=== PATIENT | male | born 1975 | race Caucasian/White ===

== ENCOUNTER 2021-01-15 00:15 | Emergency (ER) | payer OTHER, SELFPAY ==
--- NOTE | ~2021-01-15 | XR_ITS ---
EXAMINATION: XR chest 2V DATE: 01/15/2021 01:15 INDICATION: Shortness of breath TECHNIQUE: PA and lateral views of the chest are obtained. COMPARISON: None available FINDINGS: The lungs are free of acute opacities. There is no pleural effusion or pneumothorax. The ca rdiomediastinal silhouette is normal. There is mild thoracic spondylosis. IMPRESSION: 1. No acute cardiopulmonary abnormality. Reviewed, dictated and finalized at location A. [employer]
[2021-01-15 00:22] VITALS: BP 162/93; PULSE 67; RESP 16; TEMP 36.8; O2SAT 100
--- NOTE | 2021-01-15 00:28 | ED.SOB ---
HPI - SOB/Dyspnea General Chief Complaint: Shortness of Breath/Dyspnea Stated Complaint: trouble breathing Time Seen by Provider: 01/15/21 00:28 History of Present Illness HPI Narrative: Shortness of breath for the past few days. Only happens at rest and worst while he is sleeping. He believes that he is having periods of apnea that cause him to jolt awake from sleeping. When he is active he does not have any problems. He has been treating himself with OTC medication for congestion. No fever, chills, cough, CP. Related Data Allergies Allergy/AdvReac Type Severity Reaction Status Date / Time venom-wasp Allergy Rash Verified 01/15/21 00:26 Review of Systems Review of Systems: All systems reviewed & are unremarkable except as noted in HPI and below Constitutional: Constitutional: Denies chills and Denies fever(s) ENT: Denies sore throat Cardiovascular: Cardiovascular: Denies chest pain Respiratory: Respiratory: Reports dyspnea Gastrointestinal: Gastrointestinal: Denies abdominal pain and Denies nausea Neurologic: Denies confusion, Denies dizziness and Denies weakness Allergic/Immunologic: Allergic/Immunologic: Denies lip swelling, Denies throat swelling and Denies tongue swelling PMFSH Social History Social History Gender identity (if verbalized by the patient): Male Exam Const: General: healthy appearing, no acute distress and alert Orientation/consciousness: patient oriented x3 HENMT: Head: normal to inspection General nose exam: Abnormal mucous membranes and turbinates present boggy Neck: Neck: normal visual inspection Resp: Effort & Inspection: normal respiratory effort Auscultation: clear to auscultation bilaterally, no rales, no rhonchi and no wheezes Cardio: Jugular venous distension: no JVD Rate: regular rate Rhythm: regular rhythm Heart sounds: no murmurs Skin: General skin exam: normal color Neuro: General: patient oriented x3, moves all extremities, no focal motor deficits and CN's II-XI intact bilaterally Speech: normal speech Gait exam (Neuro): Normal gait present Extrem: General: normal to inspection and no edema Psych: Appearance: well kempt Affect: normal affect Course Vital Signs Vital signs: Vital Signs Temperature 36.8 C 01/15/21 00:22 Pulse Rate 67 01/15/21 00:22 Respiratory Rate 16 01/15/21 00:22 Blood Pressure 162/93 H 01/15/21 00:22 Pulse Oximetry 100 01/15/21 00:22 Temperature 36.8 C 01/15/21 00:22 Pulse Rate 57 L 01/15/21 03:09 Respiratory Rate 18 01/15/21 03:09 Blood Pressure 118/81 01/15/21 03:09 Pulse Oximetry 98 01/15/21 03:09 MDM - SOB/Dyspnea Differential Diagnosis Differential diagnosis: Likely community acquired pneumonia and other (sleep apnea, COVID-19) Lab Data Attestation: I reviewed the patient's lab results. Result diagrams: 01/15/21 01:17 01/15/21 01:17 Labs: Lab Results 01/15/21 01/15/21 Range/Units 01:17 01:17 WBC 11.2 H (4.5-10.0) K/mm3 RBC 4.70 (4.6-6.20) M/mm3 Hgb 16.0 (14.0-18.0) g/dL Hct 46.9 (42.0-52.0) % MCV 99.8 (80-100) fl MCH 34.0 (26-34) pg MCHC 34.1 (32-36) g/dl RDW 12.4 (11.5-14.5) % Plt Count 300 (150-375) k/mm3 MPV 9.7 (7.4-10.4) fl Immature Gran % (Auto) 0.4 (0-0.5) % Neut % (Auto) 49.6 (45.5-73.1) % Lymph % (Auto) 35.4 (18.3-44.2) % [place] % (Auto) 9.2 H (2.6-8.5) % Eos % (Auto) 4.5 H (0-4.4) % Baso % (Auto) 0.9 (0.2-1.2) % Lymph # (Auto) 3.98 H (0.9-3.2) K/mm3 [place] # (Auto) 1.0 H (0.1-0.6) K/mm3 Eos # (Auto) 0.5 H (0-0.3) K/mm3 Baso # (Auto) 0.1 (0.0-0.1) K/mm3 Abs Immat Gran (auto) 0.05 H (0.00-0.031) K/mm3 Absolute Neuts (auto) 5.6 (1.3-6.7) K/mm3 Absolute Nucleated RBC 0.0 (0.0-0.012) K/mm3 Nucleated RBC % 0.0 (0.0-0.2) % Sodium 138 (137-145) mmol/L Potassium 3.6 (3.4-5.0) mmol/L Chloride
--- NOTE | 2021-01-15 01:11 | ECG_ITS ---
Measurements Intervals [place] Rate: 59 P: 57 HI: 171 QRS: 35 QRSD: 91 T: 24 QT: 394 QTc: 391 Interpretive Statements SINUS BRADYCARDIA CANNOT RULE OUT SEPTAL INFARCT, AGE INDETERMINATE BASELINE ARTIFACT- I, III, AVL, AVF, V1 ABNORMAL ECG Electronically Signed On 01-15-2021 7:14:31 PACKING ROOM INSPECTOR by Reginald Garcia D.O.
[2021-01-15 01:31] LABS: Basophils Absolute Auto 0.1 K/mm3 (0.0-0.1); Basophils Percent Auto 0.9 % (0.2-1.2); Eosinophils Absolute Auto 0.5 K/mm3 (0-0.3); Eosinophils Percent Auto 4.5 % (0-4.4); Hematocrit 46.9 % (42.0-52.0); Immature Granulocyte Absolute 0.05 K/mm3 (0.00-0.031); Immature Granulocyte Percent A 0.4 % (0-0.5); Lymphocytes Absolute Auto 3.98 K/mm3 (0.9-3.2); Lymphocytes Percent Auto 35.4 % (18.3-44.2); Mean Corpuscular HGB Conc 34.1 g/dl (32-36); Mean Corpuscular Volume 99.8 fl (80-100); Mean Platelet Volume 9.7 fl (7.4-10.4); Monocytes Percent Auto 9.2 % (2.6-8.5); Neutrophils Absolute Auto 5.6 K/mm3 (1.3-6.7); Neutrophils Percent Auto 49.6 % (45.5-73.1); Platelet Count Result 300 k/mm3 (150-375); Red Cell Distribution Width 12.4 % (11.5-14.5); White Blood Count 11.2 K/mm3 (4.5-10.0)
[2021-01-15 01:42] LABS: Anion Gap 3 mmol/L (8-16); Blood Urea Nitrogen 11 mg/dL (9-20); Calcium 8.6 mg/dL (8.4-10.2); Carbon Dioxide 28 mmol/L (22-30); Chloride 107 mmol/L (98-107); Estimated CRCL calculation 89 ml/min; Estimated Glomerular Filt Rate > 60; Glucose 106 mg/dL (75-110); Potassium 3.6 mmol/L (3.4-5.0); Sodium 138 mmol/L (137-145)
[2021-01-15 02:34] VITALS: BP 127/93; PULSE 56; RESP 20; O2SAT 100
[2021-01-15 03:09] VITALS: BP 118/81; PULSE 57; RESP 18; O2SAT 98
== END 2021-01-15 03:25 | disposition home or self-care (01) ==
PROVIDERS: Emergency Provider Emergency Medicine; PCP Internal Medicine
DX: R06.00 Dyspnea, unspecified (principal); R00.1 Bradycardia, unspecified; R94.31 Abnormal electrocardiogram [ECG] [EKG]
CPT/HCPCS: 36415; 71046; 80048; 85025; 93005; 99284

== ENCOUNTER 2021-12-21 22:16 | Emergency (ER) | payer OTHER, SELFPAY ==
[2021-12-21 22:18] VITALS: BP 130/90; PULSE 82; RESP 18; TEMP 36.1; O2SAT 98
--- NOTE | 2021-12-21 22:38 | ED.HEATRA ---
HPI - Head Injury General Chief complaint: Head Injury Stated complaint: Head injury Time Seen by Provider: 12/21/21 22:23 History of Present Illness HPI Narrative: Patient is a 38-year-old male who presents ER with head laceration. He was wrestling his son training for a competition tomorrow when he was planned and struck his head on a cabinet. No LOC. No change in vision. No nausea or vomiting. No other concerns. No neck pain or upper extremity numbness or tingling. Tetanus is up-to-date. He has a 2.5 similar laceration is superficial over the top of his head. Patient is not on blood thinners. Related Data Allergies Allergy/AdvReac Type Severity Reaction Status Date / Time venom-wasp Allergy Rash Verified 01/15/21 00:26 Review of Systems Eyes: Eyes: Denies change in vision and Denies photophobia Gastrointestinal: Gastrointestinal: Denies nausea and Denies vomiting Integumentary/Breasts: Comments: Scalp laceration Neurologic: Denies vertigo, Denies syncope, Denies headache(s), Denies focal weakness and Denies numbness PMFSH Past Medical History Medical History (Updated 12/21/21 @ 22:45 by Juan Almanzar MD) Healthy adult male Surgical History Surgical History (Updated 12/21/21 @ 22:39 by Juan Almanzar MD) H/O knee surgery H/O wrist surgery Social History Social History Gender identity (if verbalized by the patient): Male Exam Narrative: GENERAL: Well-appearing, well-nourished, and in no acute distress. HEAD: Normocephalic, 2.5 cm scalp laceration superficial. EYES: PERRL and EOMI. EXTREMITIES: Normal range of motion. No edema. SKIN: Warm, dry, no rash. NEURO: Alert and oriented x3. PSYCH: Normal mood and affect. Course Course Emergency Course: Tolerated repair discharge home. Tetanus already up-to-date. Vital Signs Vital signs: Vital Signs Temperature 97 F L 12/21/21 22:18 Pulse Rate 82 12/21/21 22:18 Respiratory Rate 18 12/21/21 22:18 Blood Pressure 130/90 12/21/21 22:18 Pulse Oximetry 98 12/21/21 22:18 Temperature 97 F L 12/21/21 22:18 Pulse Rate 82 12/21/21 22:18 Respiratory Rate 18 12/21/21 22:18 Blood Pressure 130/90 12/21/21 22:18 Pulse Oximetry 98 12/21/21 22:18 Procedures Laceration Laceration 1: Date: 12/21/21 Time: 22:41 Site: scalp Size (cm): 2.5 Description: linear Depth: simple, single layer Local Anesthetic: none Pre-repair: irrigated ====== Skin Level ====== Skin layer closed with: david Number of sutures: 4 ====== Subcutaneous Layer ====== ====== Muscle Layer ====== ====== Tendon Layer ====== Discharge Plan Discharge Clinical Impression: Laceration Patient Disposition: Home, Self-Care Condition: Stable Instructions: Staple Care (ED) Additional Instructions: Return the ER if you lose consciousness, you cannot keep down food or water, you have chest pain or shortness of breath, you have additional concerns. Follow-up/Referrals: PHYSICIAN NOT ON STAFF,NONSTAFF [Primary Care Provider] - 1 Week
== END 2021-12-21 22:50 | disposition home or self-care (01) ==
PROVIDERS: Emergency Provider Emergency Medicine
DX: S01.01XA Laceration without foreign body of scalp, initial encounter (principal); Y93.72 Activity, wrestling; W22.09XA Striking against other stationary object, initial encounter
CPT/HCPCS: 12001; 99282

== ENCOUNTER 2022-04-11 14:43 | Emergency (ER) | payer OTHER, SELFPAY ==
[2022-04-11 14:46] VITALS: BP 130/85; PULSE 64; RESP 12; TEMP 36.4; O2SAT 100
--- NOTE | 2022-04-11 15:13 | ED.ABDPAIN ---
HPI - Abdominal Pain General Chief Complaint: Abdominal Pain Stated Complaint: REPORTED WORK INJURY Time Seen by Provider: 04/11/22 14:53 Source: patient History of Present Illness HPI narrative: Patient presents with abdominal pain. Patient reports he had 3 days of symptoms he was at work lifting a lot of heavy objects and developed right lower quadrant abdominal pain he sneezed and exacerbated his pain. He reports a history of multiple hernias repaired with mesh and was concern for the same. His pain was achy, constant, no radiation, no clear aggravating or alleviating factors. He has not noted any swelling nausea vomiting diarrhea or urinary symptoms. Related Data Allergies Allergy/AdvReac Type Severity Reaction Status Date / Time venom-wasp Allergy Rash Verified 01/15/21 00:26 Review of Systems Review of Systems: CONSTITUTIONAL: Denies fever, chills, or sweats. EYES: Denies visual changes, redness, or discharge. ENT: Denies rhinorrhea, congestion, sore throat, or otalgia. CARDIOVASCULAR: Denies chest pain, palpitations, or edema. RESPIRATORY: Denies cough or dyspnea. GASTROINTESTINAL: Denies, nausea, vomiting, or diarrhea. GENITOURINARY: Denies dysuria or hematuria. SKIN: Denies rash or itching. MUSCULOSKELETAL: Denies back pain, joint pain, or myalgia. NEUROLOGIC: Denies headache, numbness, dizziness, or weakness. PSYCHIATRIC: Denies anxiety or depression. All systems reviewed & are unremarkable except as noted in HPI and below PMFSH Past Medical History Medical History Healthy adult male Surgical History Surgical History H/O knee surgery H/O wrist surgery Social History Social History Gender identity (if verbalized by the patient): Male Exam Narrative: GENERAL: Well-appearing, well-nourished, and in no acute distress. HEAD: Normocephalic, atraumatic. EYES: PERRLA and EOMI. ENT: Nares clear, no rhinorrhea or epistaxis. Mucous membranes moist. NECK: Supple. No masses. No JVD ABDOMEN: Minimal pain with deep palpation in the right lower quadrant no abdominal wall defect appreciated no hernias soft, nondistended : No swelling in the scrotum no focal testicular or epididymal pain no masses appreciated no inguinal lymphadenopathy EXTREMITIES: Normal range of motion. No edema. SKIN: Warm, dry, no rash. NEURO: No focal deficits. Alert and oriented x3. PSYCH: Normal mood and affect. Course Vital Signs Vital signs: Vital Signs Temperature 36.4 C 04/11/22 14:46 Pulse Rate 64 04/11/22 14:46 Respiratory Rate 12 04/11/22 14:46 Blood Pressure 130/85 04/11/22 14:46 Pulse Oximetry 100 04/11/22 14:46 Oxygen Delivery Room Air 04/11/22 14:46 Temperature 36.4 C 04/11/22 14:46 Pulse Rate 64 04/11/22 14:46 Respiratory Rate 12 04/11/22 14:46 Blood Pressure 130/85 04/11/22 14:46 Pulse Oximetry 100 04/11/22 14:46 Oxygen Delivery Room Air 04/11/22 14:46 MDM - Abdominal Pain MDM Narrative Medical decision making narrative: H&P as above, vss, pt looks clinically well, exam with minimal abdominal pain no hernia appreciated, labs/img considered, symptomatic relief available as needed, on reevaluation pt continues to looks clinically well. Suspect abdominal wall strain, dns incarcerated hernia strangulated hernia appendicitis, perforation, torsion plan to tx/monitor as op w/ pcm f/u findings/plan discussed with pt, pt agree/comfortable with plan, return precautions given Discharge Plan Discharge Clinical Impression: Abdominal pain Qualifiers: Abdominal location: right lower quadrant Qualified Code(s): R10.31 - Right lower quadrant pain Patient Disposition: Home, Self-Care Condition: Improved Instructions: Antibiotic Form, Inguinal Hernia (ED), Abdominal Pain (ED) Additional Instructions: Please return
== END 2022-04-11 15:28 | disposition home or self-care (01) ==
PROVIDERS: Emergency Provider Emergency Medicine; PCP Family Medicine
DX: R10.31 Right lower quadrant pain (principal)
CPT/HCPCS: 99281

== ENCOUNTER 2023-08-31 16:27 | Emergency (ER) | payer OTHER, SELFPAY ==
--- NOTE | ~2023-08-31 | XR_ITS ---
EXAMINATION: XR ankle LT min 3V, XR foot LT min 3V DATE: 08/31/2023 17:34 INDICATION: Distal left fibula and lateral left foot pain TECHNIQUE: 1. Anteroposterior, mortise, additional oblique and lateral view of the left ankle were obtained. 2. Dorsoplantar, two oblique and lateral views of the left foot were obtained. COMPARISON: None. FINDINGS: Alignment of the left foot and ankle is normal. No fracture or osteochondral lesion. Mild osteoarthri tis at the first metatarsophalangeal and a few tarsometatarsal and interphalangeal joints. No ankle j oint effusion. The soft tissues are unremarkable. IMPRESSION: 1. Mild polyarticular osteoarthritis in the left mid and forefoot. No acute osseous abnormality. Reviewed, dictated and finalized at location A. IMPRESSION: 1. Mild polyarticular osteoarthritis in the left mid and forefoot. No acute oss eous abnormality.
[2023-08-31 16:57] VITALS: BP 149/106; PULSE 94; RESP 18; TEMP 37.1; O2SAT 98
--- NOTE | 2023-08-31 17:22 | ED.EXTPRO ---
HPI - Extremity Problem General Chief complaint: Extremity Problem,Nontraumatic Stated complaint: lower extremity injury Time Seen by Provider: 08/31/23 17:14 Source: patient and RN notes reviewed Mode of arrival: ambulatory (With crutches) Limitations: no limitations History of Present Illness HPI Narrative: Patient presents today complaining of left hip ankle pain. Ankle pain started suddenly as he was walking from his car into his home approximately 3 hours prior to arrival. Patient denies injury or trauma. Denies numbness or tingling in the leg or foot. States he noted some swelling to the ankle and wrappedit. He describes the pain as sharp with movement. Currently rates pain 2/10 at rest, which increases to 8/10 with movement. Related Data Allergies Allergy/AdvReac Type Severity Reaction Status Date / Time venom-wasp Allergy Rash Verified 01/15/21 00:26 Review of Systems Review of Systems: CONSTITUTIONAL: Denies body aches, fever, chills, or sweats. EYES: Denies visual changes, redness, or discharge. ENT: Denies rhinorrhea, congestion, sore throat, or otalgia. CARDIOVASCULAR: Denies chest pain, palpitations, or edema. RESPIRATORY: Denies cough or dyspnea. GASTROINTESTINAL: Denies abdominal pain, nausea, vomiting, or diarrhea. GENITOURINARY: Denies dysuria or hematuria. SKIN: Denies rash, itching, or wounds. MUSCULOSKELETAL: Denies back pain, or myalgia.+ left ankle pain NEUROLOGIC: Denies headache, numbness, tingling, or weakness. PSYCH: Denies depression or anxiety. [facility] Past Medical History Medical History Healthy adult male Surgical History Surgical History H/O knee surgery H/O wrist surgery Social History Social History Gender identity (if verbalized by the patient): Male Comments At time of signature, I have reviewed and agree with nursing past medical, surgical, social and family history unless otherwise noted. Please see nursing chart for further information. There is no relevant family history pertinent to the presenting complaint Exam Narrative: GENERAL: Well-appearing, well-nourished, and in no acute distress. HEAD: Normocephalic, atraumatic. EYES: EOMI. No redness or drainage. Conjunctivae normal. ENT: Mucous membranes pink and moist. NECK: Normal AROM. CHEST: No respiratory distress. EXTREMITIES: Left ankle: Localized edema and tenderness to the anterolateral ankle/proximal foot. Remainder of the ankle and foot is nontender without edema. No ecchymosis or erythema noted. No pain or swelling noted to the lower leg. Distal sensation intact. Capillary refill normal. Pedal pulse normal. Full range of motion of toes and ankle.-Homans SKIN: Warm, dry, no rash. Capillary refill normal. Normal skin turgor. NEURO: No focal deficits. Alert and oriented x3. Gait steady. PSYCH: Normal affect. No signs of depression or anxiety. Course Course Level of Care: Express Care Visit Vital Signs Vital signs: Vital Signs Temperature 98.8 F 08/31/23 16:57 Pulse Rate 94 08/31/23 16:57 Respiratory Rate 18 08/31/23 16:57 Blood Pressure 149/106 H 08/31/23 16:57 Pulse Oximetry 98 08/31/23 16:57 Oxygen Delivery Room Air 08/31/23 16:57 Temperature 98.8 F 08/31/23 16:57 Pulse Rate 94 08/31/23 16:57 Respiratory Rate 18 08/31/23 16:57 Blood Pressure 149/106 H 08/31/23 16:57 Pulse Oximetry 98 08/31/23 16:57 Oxygen Delivery Room Air 08/31/23 16:57 Reviewed MDM - Extremity (Nontraumatic) MDM Narrative Medical decision making narrative: X-rays are negative. Soft tissue localized swelling his consistent with a sprain. No redness or increased warmth to suggest gout or cellulitis. Patient agrees with plan to treat with rest and antiinflammatories. Recommend follow
== END 2023-08-31 18:14 | disposition home or self-care (01) ==
PROVIDERS: Emergency Provider Nurse Practitioner; PCP Family Medicine
DX: S93.402A Sprain of unspecified ligament of left ankle, initial encounter (principal); X58.XXXA Exposure to other specified factors, initial encounter
CPT/HCPCS: 73610; 73630; 99213; G0463

== ENCOUNTER 2023-12-02 00:41 | Day surgery (SDC) | payer OTHER, SELFPAY ==
[2023-11-04 11:53] VITALS: BMI 26.4
--- NOTE | 2023-11-30 09:47 | SUR.PREOP ---
Patient called regarding upcoming procedure. Message left on pt's voicemail regarding appointment times.
[2023-12-02 08:20] VITALS: BP 134/84; PULSE 72; RESP 18; TEMP 36.2; O2SAT 98
[2023-12-02] MEDS: LACTATED RINGERS 1,000 ML 150 ML IV CONT (08:31)
--- NOTE | 2023-12-02 08:40 | WPDANESEPPF ---
Anes - Initial Pre Proc Eval Procedure: Operation Date: 12/02/23 09:30 Proposed Procedures p Colonoscopy - Chad Bae MD Date/Time: 12/02/23 08:40 Surgeon: Chad Bae MD Pre Op Diagnosis: neoplasm screening Patient Data Age: 48 Gender: M Height: 1.83 m Weight: 92 kg Last Vital Signs Temp 97.1 F L 12/02/23 08:20 Pulse 72 12/02/23 08:20 Resp 18 12/02/23 08:20 BP 134/84 12/02/23 08:20 Pulse Ox 98 12/02/23 08:20 O2 Del Method Room Air 12/02/23 08:20 Allergies Allergy/AdvReac Type Severity Reaction Status Date / Time venom-wasp Allergy Rash Verified 12/02/23 08:19 Home Medications Medication Instructions Recorded Confirmed Type No Home Medications 11/04/23 12/02/23 History Patient hx anesthesia problems: none Family hx anesthesia problems: none Results Review: All pre-operative results and documents have been reviewed as part of the pre-operative evaluation. [facility] Past Medical History Medical History Healthy adult male Surgical History Surgical History H/O knee surgery H/O wrist surgery Social History Social History Smoking status: Current every day smoker Tobacco type: cigarettes Alcohol intake: current Drinks per week: 10 Substance use type: does not use Living arrangements: with family Gender identity (if verbalized by the patient): Male Spiritual care concerns: No Anes - Eval Final PreProcedure Day of Procedure 12/02/23 08:40 Patient weight: normal Heart: regular rate and rhythm Lungs: clear to auscultation Airway: Mallampati scale class II Neurological: alert and oriented Last oral intake: >/= 8 hours ASA classification: II Emergent: no Anesthetic plan: proceed Anesthesia type and monitoring: general GIVS and standard monitoring Results Review: All pre-operative results and documents have been reviewed as part of the pre-operative evaluation. Informed Consent: The patient's anesthetic plan and its attendant risks and benefits were discussed with the patient/family/POA. Questions were solicited and answers provided to the satisfaction of the patient/family/POA.
--- NOTE | 2023-12-02 08:53 | PM.HPGS ---
History of Present Illness History of Present Illness Consent: Risks, benefits, and alternatives have been discussed and questions answered. Patient agrees to proceed with procedure. Chief complaint: neoplasm screening Narrative: Antwon Taylor is a 48 year old male here for first screening colonoscopy Review of Systems Constitutional: Constitutional: Denies headache(s) and Denies weakness Eyes: Eyes: Denies blurry vision ENT: Reports Normal hearing present, Denies headache(s) and Denies neck pain Cardiovascular: Cardiovascular: Denies chest pain and Denies dyspnea Respiratory: Respiratory: Denies dyspnea Gastrointestinal: Gastrointestinal: Reports no additional gastrointestinal complaints Genitourinary: Genitourinary: Denies dysuria Musculoskeletal: Musculoskeletal: Denies neck pain Integumentary/Breasts: Skin/Breast: Denies dry skin Neurologic: Reports Normal hearing present, Denies headache(s) and Denies weakness Psychiatric: Psychiatric: Denies anxiety Endocrine: Endocrine: Denies change in body appearance Hematologic/Lymphatic: Hematologic/Lymphatic: Denies easy bleeding Allergic/Immunologic: Allergic/Immunologic: Denies urticaria [facility] Past Medical History Medical History (Updated 12/02/23 @ 08:54 by Chad Bae MD) Colon cancer screening Healthy adult male Surgical History Surgical History H/O knee surgery H/O wrist surgery Social History Social History Smoking status: Current every day smoker Tobacco type: cigarettes Alcohol intake: current Drinks per week: 10 Substance use type: does not use Living arrangements: with family Gender identity (if verbalized by the patient): Male Spiritual care concerns: No Meds Home Medications and Allergies Home Medications Medication Instructions Recorded Confirmed Type No Home Medications 11/04/23 12/02/23 History Allergies Allergy/AdvReac Type Severity Reaction Status Date / Time venom-wasp Allergy Rash Verified 12/02/23 08:19 Vital Signs Vital Signs - 24 hr 12/02/23 08:20 Temperature 97.1 F L Pulse Rate 72 Respiratory Rate 18 Blood Pressure 134/84 Pulse Oximetry 98 Oxygen Delivery Room Air Exam Const: General: comfortable and no acute distress HENMT: Face/Nose/Sinus: Normal nares present Eyes: General: appearance normal, both eyes and all related structures Neck: Neck: no JVD Resp: Auscultation: clear to auscultation bilaterally Cardio: Rate: regular rate Rhythm: regular rhythm GI: Inspection: non-distended GI Palp: Yes Soft to palpation Skin: General skin exam: normal color Neuro: General: gait normal Speech: normal speech Extrem: General: normal to inspection Psych: Mental Status: mental status grossly normal Assessment and Plan Assessment and plan (1) Colon cancer screening: Code(s): Z12.11 - Encounter for screening for malignant neoplasm of colon Status: Acute Assessment and Plan: colonoscopy
[2023-12-02 09:16] VITALS: BP 113/71; PULSE 73; RESP 18; O2SAT 94
[2023-12-02 09:26] VITALS: BP 114/66; PULSE 63; RESP 18; O2SAT 97
[2023-12-02 09:36] VITALS: BP 107/78; PULSE 61; RESP 20; O2SAT 96
== END 2023-12-02 09:39 | disposition home or self-care (01) ==
PROVIDERS: PCP Family Medicine; Visit Provider Internal Medicine Gastroenterology
PROC: 0DJD8ZZ Inspection of Lower Intestinal Tract, Via Natural or Artificial Opening Endoscopic (ICD-10-PCS; CPT 45378; principal; 2023-12-02 09:30)
DX: Z12.11 Encounter for screening for malignant neoplasm of colon (principal); D12.0 Benign neoplasm of cecum; D12.3 Benign neoplasm of transverse colon; K63.5 Polyp of colon; K64.8 Other hemorrhoids; F17.210 Nicotine dependence, cigarettes, uncomplicated
CPT/HCPCS: 45385; 45380; 88305; J2704; J7120

== ENCOUNTER 2024-04-22 14:40 | Emergency (ER) | payer OTHER, SELFPAY ==
[2024-04-22 15:04] VITALS: BP 151/103; PULSE 80; RESP 16; TEMP 36.7; O2SAT 100
--- NOTE | 2024-04-22 15:04 | ED.URI ---
HPI - URI/Sore Throat General Chief Complaint: Upper Respiratory Infection Stated Complaint: Shortness of Breath Time Seen by Provider: 04/22/24 14:53 Source: patient Mode of arrival: ambulatory Limitations: no limitations History of Present Illness HPI Narrative: Patient is a 48-year-old male who presents with shortness of breath on exertion and pressure when taking deep breaths for 2 weeks. Patient also reports congestion and right ear pain. Patient recently went to the dentist and everything was fine. Patient denies history of allergies, asthma, bronchitis, pneumonia. Patient does smoke half a pack a day. Reports taking Zyrtec twice last weekend and this morning. Denies any cough, fever, chills, nausea, vomiting, diarrhea. Related Data Allergies Allergy/AdvReac Type Severity Reaction Status Date / Time venom-wasp AdvReac Mild Rash Verified 04/22/24 14:55 Review of Systems Review of Systems: All systems reviewed & are unremarkable except as noted in HPI and below Constitutional: Constitutional: Denies body ache(s), Denies chills, Denies fatigue, Denies fever(s), Denies headache(s), Denies malaise and Denies weakness Eyes: Eyes: Denies blurry vision, Denies itchy eyes and Denies loss of vision ENT: Reports otalgia, Denies headache(s), Reports nasal congestion, Denies sinus pain and Denies sore throat Cardiovascular: Cardiovascular: Denies chest pain, Denies irregular heart rhythm and Denies dyspnea Respiratory: Respiratory: Denies cough, Denies dyspnea and Reports dyspnea on exertion Gastrointestinal: Gastrointestinal: Denies abdominal pain, Denies diarrhea, Denies nausea and Denies vomiting Musculoskeletal: Musculoskeletal: Denies back pain, Denies myalgias and Denies arthralgias Integumentary/Breasts: Skin/Breast: Denies pruritus and Denies rash Neurologic: Denies headache(s), Denies loss of vision and Denies weakness Psychiatric: Psychiatric: Reports no additional psychiatric complaints Endocrine: Endocrine: Denies fatigue Allergic/Immunologic: Allergic/Immunologic: Denies itchy eyes PMFSH Past Medical History Medical History Colon cancer screening Healthy adult male Surgical History Surgical History H/O knee surgery H/O wrist surgery Social History Social History Smoking status: Current every day smoker Tobacco type: cigarettes Alcohol intake: current Drinks per week: 10 Substance use type: does not use Living arrangements: with family Gender identity (if verbalized by the patient): Male Spiritual care concerns: No Comments At time of signature, agree with nursing past medical, surgical, social and family history. There is no relevant family history pertinent to the presenting complaint. Exam Const: General: cooperative, healthy appearing, comfortable, no acute distress and well nourished Nutritional Appearance: well nourished Orientation/consciousness: patient oriented x3 Limitations: no limitations HENMT: Head: normal to inspection, normocephalic and atraumatic Ears: hearing grossly normal bilaterally, external ears normal, TM's normal bilaterally, EAC's normal and no periauricular adenopathy Face/Nose/Sinus: Normal external nose present, Abnormal mucous membranes and turbinates present erythematous bilateral and diffuse, normal facial exam, sinuses nontender and face symmetric Face and sinus: normal facial exam, sinuses nontender and face symmetric Mouth: Yes Normal oral and palatal mucosa present, Yes lip normal, Yes tongue normal, Yes Normal salivary glands and ducts present, Yes oropharynx normal and Yes moist mucous membranes Teeth and gingiva: dentition normal Throat: posterior oropharynx normal, tonsils normal and uvula midline Eyes: General: appearance normal, both eyes and all related structures Alignme
== END 2024-04-22 15:30 | disposition home or self-care (01) ==
PROVIDERS: Emergency Provider Nurse Practitioner Family; PCP Family Medicine
DX: R06.2 Wheezing (principal); J06.9 Acute upper respiratory infection, unspecified; F17.210 Nicotine dependence, cigarettes, uncomplicated
CPT/HCPCS: 99213; G0463

== ENCOUNTER 2024-06-09 15:11 | Emergency (ER) | payer OTHER, SELFPAY ==
--- NOTE | ~2024-06-09 | XR_ITS ---
EXAMINATION: XR knee RT min 4V DATE: 06/09/2024 15:46 INDICATION: Right knee pain and swelling post fall TECHNIQUE: Anteroposterior, 2 oblique, sunrise and crosstable lateral views of the affected knee were obtained COMPARISON: None. FINDINGS: Alignment is normal. No fracture. Postoperative change of prior anterior cruciate ligament reconstru ction with interference screws at the femoral and tibial tunnels. There is at least mild tricompartme ntal osteoarthritis with small marginal osteophytes at the right knee. Severity of joint space narrow ing can however be underestimated on nonweightbearing imaging. Small right knee joint effusion withou t layering lipohemarthrosis. Soft tissues are otherwise unremarkable. IMPRESSION: 1. Small right knee joint effusion without acute osseous abnormality. 2. At least mild tricompartmental osteoarthritis of the knee with change of prior anterior cruciate l igament reconstruction. Reviewed, dictated and finalized at location A. IMPRESSION: 1. Small right knee joint effusion without acute osseous abnormality. 2. At least mild tricompartmental osteoarthritis of the knee with change of darwin or anterior cruciate ligament reconstruction.
--- NOTE | ~2024-06-09 | XR_ITS ---
EXAMINATION: XR foot LT min 3V DATE: 06/09/2024 15:46 INDICATION: Left foot pain. Fall. TECHNIQUE: 4 views of left foot were obtained. COMPARISON: Left foot radiographs 08/31/2023 FINDINGS: Bone alignment is normal. There is a chip of bone at dorsal base of first distal phalanx. T here is mild osteoarthritis of first metatarsophalangeal joint and second distal interphalangeal join t. There is mild midfoot osteoarthritis. IMPRESSION: 1. Chip of bone at dorsal base of first distal phalanx, which may be an acute avulsion fracture or a chronic finding. Reviewed, dictated and finalized at location A. IMPRESSION: 1. Chip of bone at dorsal base of first distal phalanx, which may be an acute a vulsion fracture or a chronic finding.
[2024-06-09 15:21] VITALS: BP 170/113; PULSE 70; RESP 18; TEMP 36.5; O2SAT 99
--- NOTE | 2024-06-09 15:32 | ED.FALL ---
HPI - Fall General Chief Complaint: Fall Stated Complaint: Left Foot Injury Time Seen by Provider: 06/09/24 15:23 Source: patient and RN notes reviewed Mode of arrival: ambulatory Limitations: no limitations History of Present Illness HPI Narrative: Patient presents today complaining of an injury to his right knee and left foot. Last night he was standing on a diving board approximately 2 ft off the ground when a dog knocked him off a diving board onto some concrete, on to his knee and the dorsum of his foot. He has cleaned the areas after injury and taken some ibuprofen. Currently rates his pain 1/10 at rest, which increases with weight bearing. Denies numbness or tingling in the legs or feet. Related Data Home Medications Medication Instructions Recorded Confirmed rosuvastatin 10 mg tablet mg 06/09/24 Allergies Allergy/AdvReac Type Severity Reaction Status Date / Time venom-wasp AdvReac Mild Rash Verified 04/22/24 14:55 Review of Systems Review of Systems: CONSTITUTIONAL: Denies body aches, fever, chills, or sweats. EYES: Denies visual changes, redness, or discharge. ENT: Denies rhinorrhea, congestion, sore throat, or otalgia. CARDIOVASCULAR: Denies chest pain, palpitations, or edema. RESPIRATORY: Denies cough or dyspnea. GASTROINTESTINAL: Denies abdominal pain, nausea, vomiting, or diarrhea. GENITOURINARY: Denies dysuria or hematuria. SKIN: Denies rash, itching, or wounds. MUSCULOSKELETAL: +left knee injury, right foot injury NEUROLOGIC: Denies headache, numbness, tingling, or weakness. PSYCH: Denies depression or anxiety. [facility] Past Medical History Medical History Colon cancer screening Healthy adult male Surgical History Surgical History H/O knee surgery H/O wrist surgery Social History Social History Smoking status: Current every day smoker Tobacco type: cigarettes Alcohol intake: current Drinks per week: 10 Substance use type: does not use Living arrangements: with family Gender identity (if verbalized by the patient): Male Spiritual care concerns: No Comments At time of signature, I have reviewed and agree with nursing past medical, surgical, social and family history unless otherwise noted. Please see nursing chart for further information. There is no relevant family history pertinent to the presenting complaint Exam Narrative: GENERAL: Well-appearing, well-nourished, and in no acute distress. HEAD: Normocephalic, atraumatic. EYES: EOMI. No redness or drainage. Conjunctivae normal. ENT: Mucous membranes pink and moist. NECK: Normal AROM. CHEST: No respiratory distress. EXTREMITIES: Right knee: Moderate swelling with some mild abrasions about the knee. No bony tenderness of the patella. Pain with active range of motion of the knee. Distal sensation intact. Capillary refill normal. Pedal pulse normal. Left foot: Mild to moderate swelling about the foot with some dependent ecchymosis. Tenderness to the lateral foot. Patient has some superficial abrasions to toes 2 through 5. Deeper abrasions and some minor skin avulsions to the tip of the 1st toe. It seems that the distal portion of the toenail may have been from the nail bed. First toe has some moderate ecchymosis and edema as well. Distal sensation intact. Capillary refill normal. Pedal pulse normal. Full range of motion of the toes. SKIN: Warm, dry, no rash. Capillary refill normal. Normal skin turgor. Various superficial abrasions of the right lower leg NEURO: No focal deficits. Alert and oriented x3. Gait steady. PSYCH: Normal affect. No signs of depression or anxiety. Course Course Level of Care: Express Care Visit Vital Signs Vital signs: Vital Signs Temperature 97.7 F 06/09/24 15:21
== END 2024-06-09 16:16 | disposition home or self-care (01) ==
PROVIDERS: Emergency Provider Nurse Practitioner; PCP Family Medicine
DX: M25.461 Effusion, right knee (principal); S90.32XA Contusion of left foot, initial encounter; S91.102A Unspecified open wound of left great toe without damage to nail, initial encounter; W17.89XA Other fall from one level to another, initial encounter
CPT/HCPCS: 73564; 73630; 99214; G0463

== ENCOUNTER 2024-06-30 08:10 | Outpatient (CLI) | payer OTHER, SELFPAY ==
--- NOTE | ~2024-06-30 | CT_ITS ---
EXAMINATION: CT lung screening DATE: 06/30/2024 08:25 INDICATION: Nicotine dependence TECHNIQUE: Computed tomography (CT) of the chest was performed without intravenous contrast. Addition al 3D reconstructions utilizing coronal maximum intensity projection (MIP) were performed. Automated exposure control and iterative reconstruction technique were employed. The dose-length product was 20 5.65 mGy-cm. COMPARISON: None FINDINGS: Mild emphysema. A couple 2-3 mm nodules likely representing intrafissural lymph nodes along the right minor fissure. Tiny calcified nodule in the lingula consistent with old granulomatous disease. No pn eumonia, pulmonary edema, pleural effusion or pneumothorax. Heart size is normal. A surgical coronary artery calcium. No pericardial effusion. Thoracic aorta is normal in caliber. No pathologically enla rged thoracic lymphadenopathy. Mild thoracic spondylosis. IMPRESSION: 1. Lung-RADS category 2: Benign appearance or behavior. Continue annual screening with noncontrast lo w-dose chest CT in 12 months. Reviewed, dictated and finalized at location A. IMPRESSION: 1. Lung-RADS category 2: Benign appearance or behavior. Continue annual screeni ng with noncontrast low-dose chest CT in 12 months.
--- NOTE | ~2024-06-30 | XR_ITS ---
EXAMINATION: XR abdomen obstructive series DATE: 06/30/2024 08:31 INDICATION: Epigastric abdominal pain. Nausea. Diarrhea. TECHNIQUE: Upright and supine views of the abdomen on 4 radiographs were obtained. COMPARISON: None. FINDINGS: There are no dilated loops of bowel. There is a small volume of stool in the colon. No free intraperitoneal gas. There are surgical clips in the scrotum. IMPRESSION: 1. Normal bowel gas pattern. Reviewed, dictated and finalized at location A.
--- NOTE | ~2024-06-30 | US_ITS ---
EXAMINATION: US abdomen complete DATE: 06/30/2024 09:06 INDICATION: Epigastric pain TECHNIQUE: Multiple grayscale and Doppler ultrasound images of the abdomen were obtained. COMPARISON: None available. FINDINGS: The visualized portions of the pancreas are normal. Mildly increased liver echogenicity. No surface nodularity. Normal hepatopetal flow in the main portal vein. The gallbladder is normal with no abnormal wall thickening, pericholecystic fluid or stones. The common bile duct measures 5 mm. The re was no sonographic Fry sign. The visualized portions of the aorta is normal. Inferior vena cava not well visualized. The right kidney measures 9.0 x 5.5 x 6.2 cm. The left kidney measures 8.9 x 5.3 x 5.1 cm. The kidney s demonstrate normal parenchymal echogenicity. There is no hydronephrosis. The spleen is normal in ap pearance and measures 10.9 cm. IMPRESSION: Echogenic liver, most commonly due to steatosis but also can be seen with hepatitis and fibrosis. Inferior vena cava is not well visualized during this examination. Otherwise normal abdominal ultrasound findings. Reviewed, dictated and finalized at location K. IMPRESSION: Echogenic liver, most commonly due to steatosis but also can be seen with hepat itis and fibrosis. Inferior vena cava is not well visualized during this examination. Otherwise normal abdominal ultrasound findings.
== END 2024-06-30 08:11 ==
PROVIDERS: PCP Family Medicine; Visit Provider Family Medicine
DX: Z12.2 Encounter for screening for malignant neoplasm of respiratory organs (principal); R10.13 Epigastric pain; F17.200 Nicotine dependence, unspecified, uncomplicated; K76.89 Other specified diseases of liver
CPT/HCPCS: 71271; 74019; 76700

== ENCOUNTER 2025-02-22 11:06 | Emergency (ER) | payer OTHER, SELFPAY ==
[2025-02-22 11:27] VITALS: BP 180/104; PULSE 78; RESP 16; TEMP 36.2; O2SAT 100
[2025-02-22 12:16] VITALS: BP 156/105; PULSE 62; RESP 16; O2SAT 99
--- OUTSIDE RECORDS SUMMARY | 2025-02-22 12:31 | XMS_ITS | Clinical Summary ---
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 Gender Identity Not on file Sexual Orientation Not on file Plan of Treatment Health Maintenance Due Date Last Done Comments Hepatitis C Virus (HCV) Screening 1973 TdaP Immunization 1973 Hepatitis B Immunization (1 of 3 - 19+ 3-dose series) 1992 Colonoscopy 2018 Colorectal Cancer Screening 2018 Cologuard 2023 Immunochemical Fecal Occult Blood 2023 Pneumococcal Immunization (50+ years) (1 of 1 - PCV) 2023 Zoster Immunization (1 of 2) 2023 Influenza Immunization (#1) 07/10/202408/09, 08/12/2016, 08/11/2016, Additional history exists SARS-COV-2 Immunization ( season) 2024 Respiratory Syncytial Virus (RSV) Immunization (Adult) (1 - 1-dose 75+ series) 2048 Meningococcal Immunization (ACWY) Aged Out No longer eligible based on patient's age to complete this topic Pneumococcal Immunization Combined Aged Out No longer eligible based on patient's age to complete this topic Rotavirus Immunization Aged Out No lo nger eligible based on patient's age to complete this topic
--- OUTSIDE RECORDS SUMMARY | 2025-02-22 12:31 | XMS_ITS | Clinical Summary ---
Author Organization [facility] Address [address] [place] [address] Care Team Providers Care Curam Developer Name Role Phone Jim Orellana MD Primary Care Provider Allergies No known active allergies Medications acetaminophen 500 MG tablet Take 1,000 mg by mouth every 6 (six) hours as needed for Pain. Active hydrocodone-lilia taminophen (NORCO) 5-325 MG tablet Take 1-2 tablets by mouth every 6 (six) hours as needed for Pain. 30 tablet 08/02/2018 Active Family History Medical History Relation Comments Cancer Mother breast Relation Status Comments Mother Social History Tobacco Use Types Packs/Day Years Used Date Smoking Tobacco: Every Day Cigarettes 0.5 20 Smokeless Tobacco: Never Alcohol Use Standard Drinks/Week Comments Yes 6 (1 standard drink = 0.6 oz pur e alcohol) Sex and Gender Information Value Date Recorded Sex Assigned at Not on file Legal Sex Male 4:03 PM CDT Gender Identity Not on file Sexual Orientation Not on file Last Filed Vital Signs Vital Sign Reading Time Taken Comments Blood Pressure 124/73 08/02/2018 11:20 AM CDT Pulse 68 08/02/2018 11:20 AM CDT Temperature 36.8 C (98.2 F) 08/02/2018 11:20 AM CDT Respiratory Rate 18 08/02/2018 11:20 AM CDT Oxygen Saturation 96% 08/02/2018 11:20 AM CDT Inhaled Oxygen Concentration - - Weight 98.9 kg (218 lb 0.6 oz) 08/02/2018 7:00 A M CDT Height 182.9 cm (6') 08/02/2018 7:00 AM CDT Body Mass Index 29.57 08/02/2018 7:00 AM CDT Plan of Treatment Health Maintenance Due Date Last Done Comments Colorectal Cancer Screening Colonoscopy (10 Years) 1973 Annual Physical 1976 Pneumococcal Vaccine: Pediatrics (0 to 5 Years) and At-Risk Patients (6 to 49 Years) (1 of 2 - PCV) 1979 Hepatitis C 1991 Hepatitis B Vaccines (1 of 3 - 19+ 3-dose series) 1992 Zoster Vaccines (1 of 2) 2023 COVID-19 Vaccine (1 - 2023-2 5 season) 2024 DTaP, Tdap and Td Vaccines ( 3 - Td or Tdap) 01/28/2031 01/28/2021, 08/24/2012 Meningococcal B Vaccine Aged Out No l onger eligible based on patient's age to complete this topic Meningococcal Vaccine Aged Out No damian natalie eligible based on patient's age to complete this topic RSV Immunizations Under 20 Months Aged Out No longer eligible b ased on patient's age to complete this topic Medical Devices Implanted Type Area Medical Affairs Director Device Identifier Shelf Expiration Date Model / Serial / Lot Mesh Progrip Self Fixating 15cm X 10cm [facility] - [id number] Implanted:Qty: 1 on 08/02/2018 by Rayo Jang MD at [facility] Mesh Right: Inguinal [employer] 02/06/2021 [id number] / / [id number] Insurance [facility] Care Teams Curam Developer Relationship Specialty Start Date End Date Jim Orellana MD [address] [place] [id number] PCP - General HOSPITALIST 03/14/24
--- OUTSIDE RECORDS SUMMARY | 2025-02-22 12:31 | XMS_ITS | Encounter Summary ---
Author Organization [facility] Address [address] [place] [address] Care Team Providers Care Loader Name Role Phone Travis Monroe MD Primary Care Provider [phone] Jim Orellana MD Primary Care Provider [phone] Encounter Details Date Type Department Care Team (Late st Contact Info) Description 02/27/2018 Abstract [facility] Conversion , Generic Conversion, Social History Tobacco Use Types Packs/Day Years Used Date Smoking Tobacco: Never Assessed Sex and Gender Information Value Date Recorded Sex Assigned at Not on file Legal Sex Male 4:03 PM CDT Gender Identity Not on file Sexual Orientation Not on file documented as of this encounter Plan of Treatment Not on file documented as of this encounter Visit Diagnoses Not on filedocumented in this encounter Care Teams Loader Relationship Specialty Start Date End Date Travis Monroe MD [address] [place] [address] PCP - General INTERNAL MEDICINE 08/02/18 03/13/24 Jim Orellana MD [address] [place] [id number] PCP - General HOSPITALIST 03/14/24 documented as of this encounter
[2025-02-22 12:47] VITALS: BP 156/98; PULSE 66; RESP 16; O2SAT 98
--- OUTSIDE RECORDS SUMMARY | 2025-02-22 13:29 | XMS_ITS | Clinical Summary ---
Author Organization [facility] Address [address] [place] [address] Care Team Providers Care Director Of Community Education Name Role Phone Jim Orellana MD Primary Care Provider [phone] Allergies No known active allergies Medications acetaminophen [...] this topic Medical Devices Implanted Type Area Delivery Technician Device Identifier Shelf Expiration Date Model / Serial / Lot Mesh Progrip Self Fixating 15cm X 10cm [employer] - [id number] Implanted:Qty: 1 on 08/02/2018 by Rayo Jang MD at [facility] Mesh Right: Inguinal [employer] 02/06/2021 [id number] / / [id number] Insurance [facility] Care Teams Director Of Community Education Relationship Specialty Start Date End Date Jim Orellana MD [address] [place] [phone] PCP - General HOSPITALIST 03/14/24
--- OUTSIDE RECORDS SUMMARY | 2025-02-22 13:29 | XMS_ITS | Data Portability ---
Author Organization [facility], Main Office Address [address] [place] [id number] Care Team Providers Care Certified Hyperbaric Technologist Name Role Phone JIM ORELLANA Primary Care Provider Assessment Encounter Date Assessment Date Assessment LastModified by Organization Details LastModified Time 05/25/2024 05/25/2024 D/w pt about his findings and further options for him. Answered all questions for pt. Pt wants to do all his labs together with his next annual visit on 06/16/24. Will refer pt to Cardio. Risks Vs benefits of Aspirin 81mg po BID with food explained. Pt agreed. Meds as directed. Educated pt about alarming symptoms to monitor at home and get checked in ED in that case. Pt verbalized understanding it. Will refer pt to Cardio. F/u in few weeks as directed. [email or web address] Not available 05/25/2024 16:17:04 06/16/2024 06/16/2024 48 yo M with - WELL ADULT VISIT - EPIGASTRIC PAIN, intermittent - CHEST PAIN, intermittent - HTG - HLD - GERD - B/L HAND PAIN, chronic - OVERWEIGHT - ED - SMOKER - H/O INGUINAL HERNIA REPAIR - H/O MICROSCOPIC HEMATURIA X-ray Rt knee, Lt foot: 06/09/24. Annual labs, DELANO, RF: 06/17/23. CXR: 05/13/22. Annual labs: 05/13/22. Outside labs: 08/20/21. Annual labs: 01/25/21. CXR: 01/15/21. D/w pt in detail about his findings, recent labs & imagines and further plan of care. Will do routine labs, x-ray, US and LDCT chest. Meds as directed. Risks Vs benefits of Aspirin 81mg po daily with food explained. Pt agreed. Diet and exercise explained in detail. Currently smoking about few cigs per week. Encouraged pt to cut down smoking and explained about different options for it. Pt will let us know when he is ready for it. Cont f/u with GI as per schedule. Cont f/u with Cardio as per schedule. Advised to refer to Uro; but pt declined. HM: Colonoscopy - 12/02, 3 polyps ++. Cont f/u with GI as per schedule (5 yrs). Flu - Pt declined. Tdap - 01/28/21. F/u in 2-3 weeks. Annual labs in 07/03. [email or web address] Not available 06/16/2024 11:02:21 07/07/2024 07/07/2024 48 yo M with - FATTY LIVER - EPIGASTRIC PAIN, intermittent, improved - CHEST PAIN, intermittent, resolved - HTG, uncontrolled - HLD - GERD - B/L HAND PAIN, chronic - OVERWEIGHT - ED - SMOKER - H/O INGUINAL HERNIA REPAIR - H/O MICROSCOPIC HEMATURIA US & x-ray Abdo: 06/30/24. LDCT chest: 06/30/24. Annual labs: 06/21/24. X-ray Rt knee, Lt foot: 06/09/24. Annual labs, DELANO, RF: 06/17/23. CXR: 05/13/22. Annual labs: 05/13/22. Outside labs: 08/20/21. Annual labs: 01/25/21. CXR: 01/15/21. D/w pt in detail about his findings, recent labs & imagines and further plan of care. Answered all questions for pt. Meds as directed. Risks Vs benefits of Aspirin 81mg po daily with food explained. Pt agreed. Diet and exercise explained in detail. Currently smoking about few cigs per week. Encouraged pt to cut down smoking and explained about different options for it. Pt will let us know when he is ready for it. Cont f/u with GI as per schedule. Cont f/u with Cardio as per schedule. Cont f/u with Derm as per schedule. Advised to refer to Uro; but pt declined. Offered to refer to Pulmo; but pt declined. HM: Colonoscopy - 12/02, 3 polyps ++. Cont f/u with GI as per schedule (5 yrs). Flu - Pt declined. Tdap - 01/28/21. F/u in 3 months. Lipids, CMP, hepatitis panel in 10/02. Annual labs. LDCT chest in 07/03. [email or web address] Not available 07/07/2024 14:23:16 09/28/2024 09/28/2024 48 yo M with - ELEVATED LFTs, resolved - HTG, uncontrolled - HLD - FATTY LIVER - EPIGASTRIC PAIN, intermittent, resolved - CHEST PAIN, intermittent, resolved - GERD - B/L HAND PAIN, chronic - OVERWEIGHT - ED - SMOKER - H/O INGUINAL HERNIA REPAIR - H/O MICROSCOPIC HEMATURIA Hepatitis panel: 09/08/24. US & x-ray Abdo: 06/30/24. LDCT chest: 06/30/24. Annual labs: 06/21/24. X-ray Rt knee, Lt foot: 06/09/24. Annual labs, DELANO, RF: 06/17/23. CXR: 05/13/22. Annual labs: 05/13/22. Outside labs: 08/20/21. Annual labs: 01/25/21. CXR: 01/15/21. D/w pt in detail about his findings, recent labs & imagines and further plan of care. Staff to call lab to get recent result. Pt declined for any med for his HLD/HTG. Risks explained. Answered all questions for pt. Meds as directed. Risks Vs benefits of Aspirin 81mg po daily with food explained. Pt agreed. Diet and exercise explained in detail. Currently smoking about few cigs per week. Encouraged pt to cut down smoking and explained about different options for it. Pt will let us know when he is ready for it. Cont f/u with GI as per schedule. Cont f/u with Cardio as per schedule. Cont f/u with Derm as per schedule. Advised to refer to Uro; but pt declined. Offered to refer to Pulmo; but pt declined. HM: Colonoscopy - 12/02, 3 polyps ++. Cont f/u with GI as per schedule (5 yrs). Flu - Pt declined. Tdap - 01/28/21. F/u in 3 months. Lipids in 01/03. Annual labs. LDCT chest in 07/03. [email or web address] Not available 09/28/2024 14:32:04 Plan of Treatment Reminders Order Date Submit Date Provider Last Modified By Organization Details Last Modified Time Details Appointments None recorded. Lab lipid panel, serum 2023 025 [email or web address] [id number] [facility], [address], [place], [address], 5 18:01:05 rapid flu (A+B) 2023 024 [facility], [address] [place] [address], [address], 4 15:25:24 rapid strep group A, throat 2023 024 [facility], [address] [place] [address], [place], [address], 4 15:25:52 lipid panel, serum 2023 024 4 [facility], [address], [place], [address], 5 11:50:33 hepatitis A igm Ab, serum 2023 024 [facility], [address], [place], [address], 4 08:14:25 hepatitis A igg Ab, serum 2023 024 [email or web address], [address], [address], [place], [address], 4 08:14:26 hepatitis B surface Ab, qualitative , serum 2023 024 [facility], [address], [address], [place], [address], 4 08:14:26 HBsAg (hepatitis B surface Ag), serum 2023 024 [email or web address] [address] [facility], [address], [address], [place], [address], 4 08:14:26 hepatitis C virus Ab, serum 2023 024 [place] [address] [facility], [address], [address], [place], [address], 4 08:14:26 CMP, serum or plasma 2023 024 [place] [address] [facility], [address], [address], [place], [address], 4 08:34:58 HbA1c (hemoglobin A1c), blood 2023 024 [email or web address] [address] [facility], [address], [address], [place], [address], 4 08:06:22 CMP, serum or plasma 2023 024 [place] [address] [facility], [address], [address], [place], [address], 4 08:06:21 CBC w/ auto diff 2023 024 [email or web address], [address], [address], [place], [address], 4 08:06:21 lipid panel, blood 2023 024 [email or web address] [address] [facility], [address], [address], [place], [address], 4 08:06:21 TSH, serum, reflex free T4 2023 024 [place] [address] [facility], [address], [address], [place], [address], 4 08:06:21 PSA, serum or plasma 2023 024 [place] [address] [facility], [address], [address], [place], [address], 4 08:06:22 urinalysis complete, reflex culture 2023 024 [email or web address] [address] [facility], [address], [address], [place], [address], 4 08:06:22 amylase + lipase, serum 2023 024 [place] [address] [facility], [address], [address], [place], [address], 4 08:06:22 vitamin D, 25-hydroxy, total, serum 2023 024 [place] [address] [facility], [address], [address], [place], [address], 4 08:06:22 uric acid, serum or plasma 2023 024 [place] [address] [facility], [address], [address], [place], [address], 4 08:06:22 Referral cardiologis t referral - Please call patient to schedule an appointment . Thank you. 2023 024 [facility] Referral [facility], [address], [place], [address], 4 13:09:52 Procedures None recorded. Surgeries None recorded. Imaging LDCT, chest, for lung cancer screening - Please call pt to schedule 2023 024 [facility] [address], [place], [address], 4 14:06:44 US, abdomen, complete - Epigastric pain for last few months *Please call pt to schedule* [id number] [facility]), [address] [place], [address], 4 18:32:25 XR, abdomen, 2 view - Epigastric pain for last few months *Call pt to schedule* 2023 [facility] ([facility]), [address] [place], [address], 4 15:52:28 Medication Orders Vascepa 1 gram capsule [address] [facility], [address] [place], [place], [id number], 4 14:14:48 ergocalcife rol (vitamin D2) 1,250 mcg (50,000 unit) capsule [address] [facility]04180, [address] [place], [place], [id number], 4 14:14:48 rosuvastati n 10 mg tablet [address] [facility]09106, [address] [place], [place], [id number], 4 14:14:48 Medrol (Deejay) 4 mg tablets in a dose pack [address] [facility]82193, [address] [place], [place], [id number], 4 14:13:05 azithromyci n 250 mg tablet 2023 [email or web address] [facility], [address] [place], [place], [id number], 14:12:56 albuterol sulfate HFA 90 mcg/actuati on aerosol inhaler 2023 [facility]26042, [address] [place], [place], [id number], 4 14:37:01 Solu-Medrol (PF) 125 mg/2 mL solution for injection 2023 Not available 4 14:13:10 benzonatate 200 mg capsule 2023 [email or web address] [facility] #25189, [address] [facility], [place], [place], [id number], 4 14:13:01 Vascepa [address] [facility] #67371, [address] [facility], [place], [place], [id number], 4 14:16:11 ergocalcife rol (vitamin D2) 1,250 mcg (50,000 unit) capsule [address] [facility] #98271, [address] [place], [place], [id number], 4 14:16:11 rosuvastati n 10 mg tablet [address] [facility] #84570, [address] [place], [place], [id number], 4 14:16:07 cephalexin 500 mg capsule 2023 024 [email or web address] [facility] #93714, [address] [place], [place], [id number], 4 14:18:06 famotidine [address] [facility] #56668, [address] [facility], [place], [place], [id number], 15:44:27 rosuvastati n 10 mg tablet [address] [facility] #19768, [address] [facility], [place], [place], [id number], 15:42:18 Patient TargetsNo targets recorded. Patient Instructions Encounter Date Encounter Id Patient Instructions Last Modified By Organization Details Last Modified Time 06/16/2024 [id number] learning about high cholesterol [email or web address] Not available 06/16/2024 10:41:49 07/07/2024 [id number] learning about high cholesterol [email or web address] Not available 07/07/2024 14:15:59 09/28/2024 [id number] learning about high cholesterol [email or web address] Not available 09/28/2024 14:14:48 Reason for Referral Gre[employer] Man Referral for Ca lcification of coronary artery Abnormal CT calcium result Please call patient to schedule an appointment. Thank you. Referring Physician: Jim Orellana, Family Medicine, Encounter Date: 05/25/2024 Results Created Date Observation Date Name Description Value Unit Range Abnormal Flag Note LastModifiedBy Organization Detail LastModifiedTime 08/18/2008/18/2024 rapid strep group A, throa t STREP A negati ve Not Available [address], [address], 08/18/2024 14:28:06 08/18/20 24 08/18/2024 rapid flu (A+B) Flu A negati ve Not Available [address], [address], 08/18/2024 14:28:05 08/18/20 24 08/18/2024 rapid flu (A+B) Flu B negati ve Not Available [address], [address], 08/18/2024 14:28:05 06/09/20 24 06/09/2024 XR, foot No observ ation record ed. [email or web address] [facility] [place] [address], [place], [address], 06/16/2024 10:49:00 06/09/20 24 06/09/2024 XR, knee, 3 view No observ ation record ed. [email or web address] [facility] [place] [address], [place], [address], 06/16/2024 10:49:00 06/30/20 24 06/30/2024 LDCT, chest , for lung cance r scree lavelle No observ ation record ed. [facility] [address], [place], [address], 07/07/2024 14:08:50 06/30/20 24 06/30/2024 XR, abdom en, 2 view No observ ation record ed. [email or web address] [facility] [address], [place], [address], 07/07/2024 14:08:50 06/30/20 24 06/30/2024 US, abdom en, compl ete No observ ation record ed. [email or web address] [facility] [address], [place], [address], 07/07/2024 14:08:50 07/01/20 24 06/30/2024 US, abdom en, limit ed No observ ation record ed. [email or web address] [facility] [address], [place], [address], 07/07/2024 14:08:50 08/18/20 24 08/17/2024 CMP, serum or plasm a No observ ation record ed. [email or web address] [facility] [address] [place], [address], 10/03/2024 08:34:58 Result Notes None recorded. Problems Name Problem SNOMED Code Status Onset Date Resolution Date Notes Provider Name and Address Organization Details Recorded Time Second degree burn of left hand 0315380292631 9106 Active 2021 Not Available [facility] 3 22:44:31 Microscopi c hematuria 759682916 Active 2021 Not Available [facility] 3 22:44:31 Abdominal pain 96368666 Active 2021 Not Available [facility] 3 22:44:31 Overweight 241080282 Active 2020 Not Available [facility] 3 22:44:31 Strain of abdominal muscle 096999190 Active 2021 Not Available [facility] 3 22:44:32 Right lower quadrant pain 907784151 Active 2021 Not Available [facility] 3 22:44:32 Hypertrigl yceridemia 373582755 Active 2020 Not Available [facility] 3 22:44:32 Vitamin D deficiency 59074876 Active 2020 Not Available [facility] 3 22:44:32 Seasonal allergic rhinitis 709949809 Active 2020 Not Available [facility] 3 22:44:32 Elevated blood-pres sure reading without diagnosis of hypertensi on 390149404 Active 2020 Not Available [facility] 3 22:44:32 Hyperlipid emia 03663738 Active 2021 Not Available [facility] 3 22:44:32 Smoker 41898561 Active 2020 Not Available [facility] 3 22:44:32 Erectile dysfunctio n 714853054 Active 2021 Not Available [facility] 3 22:44:32 Multiple joint pain 62903477 Active 2022 Jim Orellana MD [address] [place] [address], [facility] [address], [place], [address] , [facility] [employer] [facility] 3 12:07:55 Cough 64984341 Active 2023 Jim Orellana MD [address], [place], [address] , [facility] [employer] [facility] [employer] [facility] 4 15:50:42 Nasal congestion 73267094 Active 2023 Jim Orellana MD [address], [place], [address] , [facility] [employer] [facility] [employer] [facility] 4 15:51:04 Sleep apnea 50158984 Active 2023 Jim Orellana MD [address], [place], [address] , [facility] [employer] [facility] [employer] [facility] 4 15:51:23 Bronchitis 41409060 Active 2023 Jim Orellana MD [address], [place], [address] , [facility] [employer] [facility] [employer] [facility] 4 15:51:32 Calcificat ion of coronary artery 008782563 Active 2023 Jim Orellana MD [address], [place], [address] , [facility] [employer] [facility] [employer] [facility] 4 15:42:29 Gastroesop hageal reflux disease without esophagiti s 361882628 Active 2023 Jim Orellana MD [address], [place], [address] , [facility] [employer] [facility] [employer] [facility] 4 15:43:33 Epigastric pain 64698016 Active 2023 Jim Orellana MD [address], [place], [address] , [facility] [employer] [facility] [employer] [facility] 4 10:45:41 Abrasion of skin of left lower leg 3229793380063 9100 Active 2023 Jim Orellana MD [address], [place], [address] , [employer] 4 10:51:17 Liver enzymes level above reference range 996932178 Active 2023 Jim Orellana MD [address], [place], [address] , [employer] 4 14:15:15 Fatigue 77455460 Active 2023 Jim Orellana MD [address], [place], [address] , [employer] 4 14:28:16 Expiratory wheezing 3908246 Active 2023 Jim Orellana MD [address], [place], [address] , [employer] 4 14:34:39 Problem Notes None recorded. Procedures Surgical History Date Name Laterality Status Provider Name and Address Organization Details Recorded Time 09/28/20 24 Smoking Cessation completed Jim Orellana MD [address], [place], [address], [employer] 09/28/2024 14:31:23 06/16/20 24 Smoking Cessation completed MD [address], [place], [address], [employer] 06/16/2024 11:02:41 06/16/20 23 Smoking Cessation completed MD [address], [place], [address], [employer] [address] [employer] 06/16/2023 12:12:36 reconstruction of anterior cruciate ligament of knee joint completed Not Available [facility] 01/07/2023 22:43:08 hernia repair completed Not Available [facility] 01/07/2023 22:43:08 Hand tendon reconstruction completed Not Available [facility] 01/07/2023 22:43:08 Imaging Results Imaging Date Name Status LastModified by Organiz ation Details LastModified Time 06/09/2024 XR, foot completed [email or web address] [facility] [place] [address], [place], [address], 06/16/2024 10:49:00 06/09/2024 XR, knee, 3 view completed [email or web address] [facility] [place] [address], [place], [address], 06/16/2024 10:49:00 06/30/2024 LDCT, chest, for lung cancer screening completed [facility] [address], [place], [address], 07/07/2024 14:08:50 06/30/2024 XR, abdomen, 2 view completed [facility] [address], [place], [address], 07/07/2024 14:08:50 06/30/2024 US, abdomen, complete completed [email or web address] [facility] [address], [place], [address], 07/07/2024 14:08:50 06/30/2024 US, abdomen, limited completed [facility] [address], [place], [address], 07/07/2024 14:08:50 08/17/2024 CMP, serum or plasma [email or web address] [address], [place], [address], 10/03/2024 08:34:58 Procedure Notes None recorded. Medical Equipment None Reported. Allergies No known drug allergies Medications Name Sig Start Date Stop Date Status Note LastModified by Organization Details LastModified Time compact space chamber/an ti-static zoran 05/25 completed Not Available Not Available Not Available amoxicilli n 500 mg capsule 01/28 completed Not Available Not Available Not Available silver sulfadiazi ne 1 % topical cream APPLY 1/16 INCH THICK LAYER TO ENTIRE BURN AREA TWICE DAILY 06/16 completed Not Available Not Available Not Available azithromyc in 250 mg tablet TK 2 TS PO ON DAY 1, THEN TK 1 T PO D FOR 4 DAYS 09/28 completed Not Available Not Available Not Available benzonatat e 200 mg capsule TAKE 1 CAPSULE BY MOUTH EVERY 8 HOURS FOR 7 DAYS NEEDED 09/28 completed Not Available Not Available Not Available prednisone 20 mg tablet TAKE 2 TABLETS BY MOUTH DAILY FOR 5 DAYS 05/25 completed Not Available Not Available Not Available sildenafil 100 mg tablet Take 1 tablet as needed by oral route as directed for 30 days. active Take half tab to full tab, 30 mins before interco urse. Do not take more than 1 pill in 24 hrs. Not Available Not Available Not Available amoxicilli n 875 mg tablet TK 1 T PO Q 12 H TAT 01/21 completed Not Available Not Available Not Available famotidine 20 mg tablet Take 1 tablet twice a day by oral route as directed for 90 days. 2024 active Not Available Not Available Not Avai lable cephalexin 500 mg capsule TAKE 1 CAPSULE BY MOUTH THREE TIMES DAILY FOR 7 DAYS DIRECTED 07/07 completed Not Available Not Available Not Available ergocalcif cammie (vitamin D2) 1,250 mcg (50,000 unit) capsule TAKE 1 CAPSULE BY MOUTH EVERY WEEK DIRECTED active Not Available Not Available No t Available methylpred nisolone 4 mg tablets in a dose pack FOLLOW PACKAGE [employer] NS 09/28 completed Not Available Not Available Not Available albuterol sulfate HFA 90 mcg/actuat ion aerosol inhaler INHALE 2 PUFFS BY MOUTH EVERY 6 HOURS NEEDED active Not Available Not Available No t Available fluticason e propionate 50 mcg/actuat ion nasal spray,susp ension Paradox 2 sprays every day by intranas al route as directed for 30 days. 06/16 completed Not Available Not Available Not Available amoxicilli n 875 mg-potassi um clavulanat e 125 mg tablet TAKE 1 TABLET BY MOUTH EVERY 12 HOURS 05/25 completed Not Available Not Available Not Available oxycodone 5 mg tablet TK 1 T PO Q 4 TO 6 H PRN P 01/21 completed Not Available Not Available Not Available rosuvastat in 10 mg tablet Take 1 tablet every day by oral route at bedtime for 90 days. 2024 active Not Available Not Available Not Avai lable chlorhexid ine gluconate 0.12 % mouthwash RM WITH 1 CAPFUL IN THE MORNING AND B BED. TEMO IQBAL AFTER 7 DAYS 01/21 completed Not Available Not Available Not Available Solu-Medro l (PF) 125 mg/2 mL solution for injection Take 125 mg by injectio n route for 1 day. 09/28 completed Not Available Not Available Not Available Vascepa 1 gram capsule Take 2 capsules twice a day by oral route as directed for 90 days. 2024 active Not Available Not Available Not Avai lable Compact Space Chamber USE DIRECTED active Not Available Not Available No t Available ID NOW COVID-19 Test Kit TEST DIRECTED TODAY 04/30 completed Not Available Not Available Not Available Vitals Date Recorded Body height Body mass index (BMI) Body weight Body temperature Heart rate Respiratory rate Oxygen saturation Oxygen saturation in Arterial blood by Pulse oximetry Systolic blood pressure Diastolic blood pressure Provider Name and Address Organization Details Last Updated DateTime 4 182.88 cm 28.6 kg/m2 39222.6 3 g 98.1 [degF] 64 /min 20 /min 99 % 99 % 132 mm[Hg] 68 mm[Hg] [employer] 4 15:30:38 Date Recorded Body height Body mass index (BMI) Body weight Body temperature Heart rate Respiratory rate Oxygen saturation Oxygen saturation in Arterial blood by Pulse oximetry Systolic blood pressure Diastolic blood pressure Provider Name and Address Organization Details Last Updated DateTime 4 182.88 cm 27.3 kg/m2 48272.4 7 g 98.1 [degF] 64 /min 16 /min 98 % 98 % 134 mm[Hg] 78 mm[Hg] [employer] 4 10:37:39 Date Recorded Body height Body mass index (BMI) Body weight Body temperature Heart rate Respiratory rate Oxygen saturation Oxygen saturation in Arterial blood by Pulse oximetry Systolic blood pressure Diastolic blood pressure Provider Name and Address Organization Details Last Updated DateTime 4 182.88 cm 27.7 kg/m2 76416.6 4 g 98.4 [degF] 68 /min 16 /min 98 % 98 % 128 mm[Hg] 72 mm[Hg] [employer] 14:06:14 Date Recorded Body height Body mass index (BMI) Body weight Body temperature Heart rate Respiratory rate Oxygen saturation Oxygen saturation in Arterial blood by Pulse oximetry Provider Name and Address Organization Details Last Updated DateTime 4 182.88 cm 27.4 kg/m2 69693.0 1 g 97.9 [degF] 76 /min 20 /min 98 % 98 % Jose Rodrigues [facility] [employer] [facility] 14:22:39 Date Recorded Systolic blood pressure Diastolic blood pressure Provider Name and Address Organization Details Last Updated DateTime 08/18/2024 150 mm[Hg] 86 mm[Hg] Jim Orellana MD [address], [place] [address], [place], [address], [facility] [employer] [facility] 08/18/2024 14:27:45 Date Recorded Body height Body mass index (BMI) Body weight Heart rate Oxygen saturation Oxygen saturation in Arterial blood by Pulse oximetry Systolic blood pressure Diastolic blood pressure Provider Name and Address Organization Details Last Updated DateTime 4 182.88 cm 27.6 kg/m2 08784.7 7 g 74 /min 96 % 96 % 140 mm[Hg] 88 mm[Hg] Irene Dodge RN [facility] [employer] [facility] 14:07:13 Date Recorded Body temperature Provider Name a md Address Organization Details Last Updated DateTime 09/28/2024 98.4 [degF] Kirit Roem [address], [facility] [address], [place], [address] [employer] [facility] 09/28/2024 14:29:22 Social History Question Answer Notes LastModified by Organizat ion Details LastModified Time Tobacco Smoking Status Current Every Day Smoker Not Available [employer] 01/07/2023 22:42:21 Do You Have An Advance Directive? No MIGRATION.[id number] Information not available 01/07/2023 What Is Your Level Of Alcohol Consumption? Occasional MIGRATION.77788 [id number] Information not available 01/07/2023 Do You Wear A Helmet When Biking? No MIGRATION.83360 41300 Information not available 01/07/2023 What Is Your Level Of Caffeine Consumption? Heavy MIGRATION.75814 40134 Information not available 01/07/2023 In The 14 Days Before Symptom Onset, Have You Had Close Contact With A Laboratory-confi rmed COVID-19 While That Case Was Ill? No MIGRATION.69129 11968 Information not available 01/07/2023 In The 14 Days Before Symptom Onset, Have You Had Close Contact With A Person Who Is Under Investigation For COVID-19 While That Person Was Ill? No MIGRATION.67005 17980 Information not available 01/07/2023 What Type Of Diet Are You Following? REGULAR MIGRATION.08914 16299 Information not available 01/07/2023 What Is The Highest Grade Or Level Of School You Have Completed Or The Highest Degree You Have Received? [id number] MIGRATION.89878 83846 Information not available 01/07/2023 Have There Been Any Changes To Your Family Or Social Situation? No MIGRATION.56715 91994 Information not available 01/07/2023 Are There Any Guns Present In Your Home? No MIGRATION.16441 87053 Information not available 01/07/2023 Do You Use Insect Repellent Routinely? No MIGRATION.30769 52311 Information not available 01/07/2023 Where Do You Live? [place] MIGRATION.73740 84496 Information not available 01/07/2023 Do You Have A Medical Power Of Licensing Coordinator? No MIGRATION.79750 52094 Information not available 01/07/2023 Have You Ever Been Counseled For Unhealthy Alcohol Use? No MIGRATION.02992 48377 Information not available 01/07/2023 Do You Have Any Pets? Yes MIGRATION.08393 27225 Information not available 01/07/2023 What Is Your Relationship Status? MIGRATION.16080 30804 Information not available 01/07/2023 Do You Use Your Seat Belt Or Car Seat Routinely? Yes MIGRATION.39458 65999 Information not available 01/07/2023 Do You Have Smoke And Carbon Monoxide Detectors In Your Home? Yes MIGRATION.01629 27781 Information not available 01/07/2023 Are You Passively Exposed To Smoke? No MIGRATION.73812 98754 Information not available 01/07/2023 Are There Any Smokers In Your House? No MIGRATION.65290 93393 Information not available 01/07/2023 How Much Tobacco Do You Smoke? 1 PPD MIGRATION.11333 35478 Information not available 01/07/2023 Do You Participate In Social Media? No MIGRATION.62394 47521 Information not available 01/07/2023 Do You Feel Stressed (tense, Restless, Nervous, Or Anxious, Or Unable To Sleep At Night)? [id number] MIGRATION.06518 50837 Information not available 01/07/2023 Do You Use Any Illicit Or Recreational Drugs? No MIGRATION.83160 09654 Information not available 01/07/2023 Do You Use Sunscreen Routinely? No MIGRATION.22525 79866 Information not available 01/07/2023 Has Tobacco Cessation Counseling Been Provided? No MIGRATION.01448 49428 Information not available 01/07/2023 Have You Recently Traveled Abroad? No MIGRATION.58163 27466 Information not available 01/07/2023 Are You Currently In School? No MIGRATION.61839 17682 Information not available 01/07/2023 Do You Have Any Dietary Restrictions? No MIGRATION.78257 64818 Information not available 01/07/2023 Do You Or Have You Ever Used Any Other Forms Of Tobacco Or Nicotine? No MIGRATION.74403 54453 Information not available 01/07/2023 Sex: Male Functional Status Question Answer Note LastModified by Organizat ion Details LastModified Time What is your exercise level? Moderate [id number] Information not available 01/07/2023 Mental Status None recorded. Family History Relationship Description Onset Age of this Age Resolved Age Notes LastModified by Organization Details LastModified Time Unspecified Relation Family history of malignant neoplasm [id number] Not available 01/07/2023 22:43:08 Medical History Condition Response BLINDNESS N RHEUMATIC FEVER N KIDNEY STONES N BLADDER PROBLEMS N OTHER # 1 N POLIO N LUNG DISEASE/DISORDER N RADIATION / CHEMOTHERAPY N COPD N Other # 2 N BLOOD DISEASES N SURGERY N EAR OR HEARING PROBLEMS N MUMPS N FEMALE PROBLEMS / INFECTIONS N DEPRESSION (INCLUDING POST ) N BOWEL PROBLEMS N STROKE/TIA N THYROID DISEASE N ULCERS N BENIGN PROSTATIC HYPERPLASIA N MEASLES N CERVICALGIA N TB SKIN TEST N MYOCARDIAL INFARCTION N PARAPELGIA N OBESITY N GERD/NAUSEA N ANEURYSM N URINARY/BLADDER/KIDNEY PROBLEMS N INPATIENT PSYCH CARE N CORONARY ARTERY DISEASE (CAD) N MENIERE'S DISEASE N ADDICTION CONCERNS N ENDOMETRIOSIS N USE OF BLOOD THINNERS N SKIN PROBLEMS N EMPHYSEMA N GASTROINTESTINAL DISORDER N MUSCLE,JOINT OR BONE PROBLEMS N GASTROINTESTINAL BLEEDING N BLOOD CLOTS N ASTHMA N CATARACTS N ERECTILE DYSFUNCTION N GI PROBLEMS N CHF N Low Testosterone N NEUROPATHY N INFERTILITY N AIDS/HIV N FRACTURES N VISION/EYE PROBLEMS N LIVER DISEASE N MALE HYPOGONADISM N HYPERTENSION N ANXIETY DISORDER N BLOOD TRANSFUSION N ANEMIA/BLOOD DISORDER N CHRONIC EAR INFECTIONS N BRONCHITIS N TUBERCULOSIS N GLAUCOMA N FOOT PROBLEM N DIVERTICULITIS N SLEEP APNEA N CHICKENPOX N ALLERGIES/HAYFEVER N INFECTIOUS DISEASE N PROSTATE N HEART ARRHYTHMIA N INSOMNIA N HIGH CHOLESTEROL / HYPERLIPIDEMIA N EYE PROBLEMS N HYPERTHYROIDISM N EATING DISORDER N NEUROLOGICAL PROBLEMS N EDEMA N CHRONIC PAIN SYNDROME N HYPOTHYROIDISM N CAROTID BLOCKAGE N CONSTIPATION N BACK / NECK PROBLEMS N HAVE YOU BEEN HOSPITALIZED OR SEEN IN [facility] IN THE PAST YEAR ? N ATHEROSCLEROSIS N BREAST PROBLEMS N DIALYSIS N ECZEMA N FIBROMYALGIA N OSTEOPOROSIS N ARTHRITIS N NO SIGNIFICANT PAST MEDICAL HISTORY N APPENDICITIS N DIABETES, TYPE N BAD TEETH N HEARTBURN / REFLUX N ADD/ADHD N AUTISM SPECTRUM DISORDER (ASD) N HEPATITIS / LIVER DISEASE N PULMONARY DISEASE N GOUT N SLEEP DISORDER N ALZHEIMER'S DISEASE N PAIN N DEMENTIA N HERPES N SEIZURES/EPILEPSY N HEADACHES/MIGRAINES N VASCULAR DISEASE N PACEMAKER N DIZZINESS N HEART DISEASE/HEART PROBLEMS N KIDNEY DISEASE N SCARLET FEVER N MULTIPLE SCLEROSIS N DEVELOPMENTAL OR BEHAVIORAL DISORDERS N MENTAL DISORDER/ILLNESS N CANCER: SPECIFY N CARDIAC ARRHYTHMIA N PNEUMONIA N ANESTHESIA COMPLICATIONS N ATRIAL FIBRILLATION N PULMONARY EMBOLISM N AUTOIMMUNE DISEASE N Immunizations Vaccine Type Date Status Note Provider Nam e and Address Organization Details Recorded Time Tdap 01/28/2021 completed Not Available [facility] 01/07/2023 22:45:43 Past Encounters Encounter ID Performer Location Encounter Start Date Encounter Closed Date Diagnosis/Indication Diagnosis SNOMED-CT Code Diagnosis ICD10 Code Diagnosis Note [id number] [address] [address] 01/21/2021 00:00:00 01/21/2021 17:02:[id number] [address] 01/28/2021 00:00:00 01/29/2021 09:00:[id number] [address] 12/03/2021 00:00:00 12/03/2021 09:46:[id number] [place] [address] 04/17/2022 00:00:00 04/17/2022 18:00:03 [id number] [facility] [address] [place], [place] [address] [place] [address] 04/30/2022 00:00:00 04/30/2022 10:35:42 [id number] [facility] [address] [place] [address] 05/13/2022 00:00:00 05/13/2022 15:28:14 [id number] [facility] [address] [place] [address] 05/15/2022 00:00:00 05/15/2022 09:47:41 [id number] Jim Orellana MD [address] [address] 06/16/2023 11:48:16 06/16/2023 12:23:00 Adult health examination 331792992 Z00.00 Vitamin D deficiency 347 68728 E55.9 Smoker 62339842 F17.200 episodic Overweight 299792893 E66 .3 Multiple joint pain 3567 8005 M25.50 Screening colonoscopy 44 8457586 Z12.11 [id number] Jim Orellana MD [address] [address] 07/02/2023 10:15:31 07/02/2023 10:33:52 Multiple joint pain 52972158 M25.50 Vitamin D deficiency 347 39135 E55.9 Improved Smoker 97769874 F17.200 episodic Overweight 134428751 E66 .3 Hypertriglyceridemia 302 154054 E78.2 Hyperlipidemia 36560385 E78.5 Improved - diet controlled [id number] Jim Orellana MD [address] [address] 05/02/2024 15:35:32 05/02/2024 15:59:22 Cough 23936056 R05.9 Nasal congestion 3619539 0 R09.81 Sleep apnea 15748926 G47 .30 Bronchitis 96058751 J40 Pt declined for cxr. Overweight 626458153 E66 .3 [id number] Jim Orellana MD [address] [address] 05/25/2024 15:15:32 05/25/2024 16:22:46 Hyperlipidemia 52082780 E78.5 Calcificat ion of coronary artery 735837171 I25.84 Gastroesop hageal reflux disease without esophagitis 854323056 K21.9 Overweight 736369372 E66 .3 [id number] Jim Orellana MD [address] [address] 06/16/2024 10:27:36 06/16/2024 10:58:53 Multiple joint pain 60106438 M25.50 Vitamin D deficiency 347 66298 E55.9 Improved Smoker 61743342 F17.200 Overweight 036214901 E66 .3 Hypertriglyceridemia 302 227737 E78.2 Hyperlipidemia 90764294 E78.5 [facility] 442595594 Z00.00 Gastroesop hageal reflux disease without esophagitis 202539191 K21.9 Epigastric pain 05747403 R10.13 Abrasion o f skin of left lower leg 4915708128 0011274 S80.812D [id number] Jim Orellana MD [address] [address] 07/07/2024 13:57:29 07/07/2024 14:24:44 Multiple joint pain 21560734 M25.50 Vitamin D deficiency 347 66095 E55.9 Smoker 42598939 F17.200 Overweight 698502095 E66 .3 Hypertriglyceridemia 302 028232 E78.2 Hyperlipidemia 65407628 E78.5 Gastroesop hageal reflux disease without esophagitis 998896850 K21.9 Liver enzy mes level above reference range 381680181 R74.01 [id number] Jim Orellana MD [address] [address] 08/18/2024 14:13:45 08/18/2024 15:23:07 Cough 27630118 R05.9 Nasal congestion 5006288 0 R09.81 Fatigue 24390286 R53.83 Bronchitis 21226184 J40 Pt declined for cxr. Expiratory wheezing 9763 007 R06.2 [id number] Jim Orellana MD [facility] [address] [address] 09/28/2024 13:59:41 09/28/2024 14:33:17 Vitamin D deficiency 68582550 E55.9 Hypertriglyceridemia 302 204981 E78.2 Hyperlipidemia 37866890 E78.5 Multiple joint pain 3567 8005 M25.50 Smoker 06069308 F17.200 Overweight 814595675 E66 .3 Gastroesop hageal reflux disease without esophagitis 555736945 K21.9 Liver enzy mes level above reference range 801568304 R74.01 resolved Health Concerns Section Related Observation LastModified by Organization Detai ls LastModified Time None Recorded Concern Status LastModified by Organization Details LastModified Time None Recorded Advance Directives Directive N: Payers Encounter Date Sequence Insurance Name Policy Number Policy Bearden Covered Member ID Bearden Member ID Guarantor Name 05/25/[address] [facility] [id number] Flavia Taylor [id number] Antwon Taylor 06/16/[address] [facility] [id number] Flavia Taylor [id number] Antwon Taylor 07/07/[address] [facility] [id number] Flavia Taylor [id number] Antwon Taylor 08/18/[address] [facility] [id number] Flavia Taylor [id number] Antwon Taylor 09/28/[address] [facility] [id number] Flavia Taylor [id number] Antwon Taylor Notes Date Note Type Note Provider Name and Address Organization Details Recorded Time 05/25/2024 text/html ACV: Pt went for CT calcium coronary testing yesterday and he got concerned about its results. So he is stressed out and has questions about it. C/o intermittent central chest area pain for last 1-2 months, on/off. Pt denies any other symptoms, no radiation. In the office, pt doesn't have any concerning symptoms. Jim Orellana MD [address], [address], [place], [address], [employer] 05/25/2024 16:17:44 06/16/2024 text/html Pt is here for h is annual exam. Doing overall well. Denies any problem with meds. Pt has a fall at his home last week and was seen at and got couple x-rays there and it was good. Pt doesn't want to see any [employer] for this. Pt saw Cardio and will be getting more testing done with them. Pt will be getting sleep study done in future too. C/o intermittent central chest area & epigastric area pain for last 1-2 months, on/off. Pt denies any other symptoms, no radiation. In the office, pt doesn't have any concerning symptoms.Pt has h/o b/l inguinal hernia and it got fixed surgically. Jim Orellana MD [address], [address], [place], [address], [employer] 06/16/2024 11:03:08 07/07/2024 text/html Pt is here for f /u on his annual labs, US, CT. Doing overall well. Denies any problem with meds. Denies any new concern. Pt saw Cardio and will be getting more testing done with them. Pt will be getting sleep study done in future too. C/o intermittent central chest area & epigastric area pain for last 1-2 months, on/off. Pt denies any other symptoms, no radiation. In the office, pt doesn't have any concerning symptoms.Pt has h/o b/l inguinal hernia and it got fixed surgically. Jim Orellana MD [address], [address], [place], [address], [employer] 07/07/2024 14:23:57 08/18/2024 text/html ACV: C/o cough, congestion, drainage, fatigue for last 3-4 days. Pt's son and few other people around him were sick last week and he has Pneumonia and is on med for it. Pt is f/u with Cardio for his intermittent chest pain and got stress test done with them yesterday. Pt will be seeing them next week. Jim Orellana MD [address], [facility], [place], [address], [facility] 08/18/2024 15:22:28 09/28/2024 text/html Pt is here for f /u on his labs and chronic conditions. Doing overall well. Denies any problem with meds. Denies any new concern. Pt is f/u with his Cardio and got more testing with them and it all came back good as per pt. Pt is monitoring his BP at home too. Pt will be getting sleep study done in future too. C/o intermittent central chest area & epigastric area pain for last 1-2 months, on/off. Pt denies any other symptoms, no radiation.Pt has h/o b/l inguinal hernia and it got fixed surgically. Jim Orellana MD [address], [place], [address], [employer] 09/28/2024 14:33:08
--- OUTSIDE RECORDS SUMMARY | 2025-02-22 13:29 | XMS_ITS | Clinical Summary ---
Author Organization [facility] Care Team Providers Care Summer Child Caregiver Name Role Phone Unavailable Primary Care Provider Unavailabl e Social History Tobacco Use Types Packs/Day Years Used Date Smoking Tobacco: Never Assessed Sex and Gender Information Value Date Recorded Sex Assigned at Not on file Legal Sex Male 1:49 PM [employer] CONSULT[employer] Gender Identity Not on file Sexual Orientation [...]
--- OUTSIDE RECORDS SUMMARY | 2025-02-22 13:29 | XMS_ITS | Encounter Summary ---
Author Organization [facility] Address [address] [place] [address] Care Team Providers Care Chute Operator Name Role Phone Travis Monroe MD Primary Care Provider [phone] Jim Orellana MD Primary Care Provider [phone] Encounter Details Date Type Department Care Team (Late st Contact Info) Description 02/27/2018 Abstract [facility] Conversion , Generic Conversion, Social History Tobacco [...] on filedocumented in this encounter Care Teams Chute Operator Relationship Specialty Start Date End Date Travis Monroe MD [address] [place] [address] PCP - General INTERNAL MEDICINE 08/02/18 03/13/24 Jim Orellana MD [address] [place] [phone] PCP - General HOSPITALIST 03/14/24 documented as of this encounter
--- NOTE | 2025-02-22 19:02 | ED.RECABL ---
HPI - Recheck/Abnormal Lab/Rx General Chief Complaint: Recheck/Abnormal Lab/Rx Stated Complaint: High BP 170/120-lightheaded Time Seen by Provider: 02/22/25 12:21 History of Present Illness HPI narrative: Patient checked his blood pressure at home and noticed that it was elevated, so came into the hospital to get checked out. Initially stated that he was feeling possibly lightheaded but does not actually have any symptoms and thinks that he may have just been anxious about the blood pressure. He is currently not having any symptoms, no chest pain, shortness of breath, headache, focal numbness or weakness. Is seeing a postbed stitcher due to an elevated calcium score that he got as an elective lab he paid for. Related Data Home Medications ?Medication ?Instructions ?Recorded ?Confirmed ?Last Taken ?Type rosuvastatin 10 mg tablet mg 06/09/24 Unknown History Allergies Allergy/AdvReac Type Severity Reaction Status Date / Time venom-wasp AdvReac Mild Rash Verified 02/22/25 11:07 Review of Systems Review of Systems: All systems reviewed & are unremarkable except as noted in HPI and below [facility] Past Medical History Medical History Colon cancer screening Healthy adult male Surgical History Surgical History H/O knee surgery H/O wrist surgery Social History Social History Smoking status: Current every day smoker Tobacco type: cigarettes Alcohol intake: current Drinks per week: 10 Substance use type: does not use Living arrangements: with family Gender identity (if verbalized by the patient): Male Spiritual care concerns: No Exam Narrative: EXAMINATION OF ORGAN SYSTEMS/BODY AREAS: Constitutional: Vital signs per nursing GENERAL:[No acute distress, non-toxic appearing.] HEAD: Normal with no signs of head trauma. EYES: EOMI, conjunctiva normal ENT: Hearing grossly intact LUNGS: Nonlabored breathing. HEART: [Regular rate and rhythm] ABD: [Soft], [nontender to palpation] EXT: Normal range of motion SKIN: [No rashes or lesions.] NEURO: [Alert and oriented x 3. No gross focal sensory or strength deficits.] PSYCH: Normal affect Course Vital Signs Vital signs: Vital Signs Temperature 97.2 F L 02/22/25 11:27 Pulse Rate 78 02/22/25 11:27 Respiratory Rate 16 02/22/25 11:27 Blood Pressure 180/104 H 02/22/25 11:27 Pulse Oximetry 100 02/22/25 11:27 Temperature 97.2 F L 02/22/25 11:27 Pulse Rate 66 02/22/25 12:47 Respiratory Rate 16 02/22/25 12:47 Blood Pressure 156/98 H 02/22/25 12:47 Pulse Oximetry 98 02/22/25 12:47 MDM - Recheck/Abnormal Lab/Rx MDM Narrative Medical decision making narrative: Patient with asymptomatic hypertension. No signs or symptoms of end organ dysfunction; no chest pain or shortness of breath, neurological deficits, severe headaches, visual disturbance, oliguria, or symptoms of dissection/AAA). Long-term risks of hypertension, especially uncontrolled, were discussed including increased risks of kidney disease, vascular disease, stroke and heart disease.I will start patient on amlodipine here and provide script for short course, patient expressed understanding of the instructions and strongly advised to follow-up with PMD for further management. Discharge Plan Discharge Clinical Impression: Hypertension Patient Disposition: Home Condition: Stable Instructions: Hypertension (ED) Additional Instructions: Please start taking the medications as prescribed, you can log your blood pressure at home and bring it to your doctor's office when you follow-up with them in the next few days; you can always return for any further issues or if you experience any symptoms. Patient Language: Gambian Prescriptions: New amlodipine 5 mg tablet 5 mg PO DAILY Qty: 30 0RF No Action (DME) Aerochamber MV Spacer See Rx Instructions .Route Qty: 1 0RF Rx Instructions: As directed albuterol sulfate 90 mcg/actuation HFA aerosol inhaler 2 puff inhalation QID PRN (Reason: shortness of breath or wheezing) Qty: 6.7 0RF rosuvastatin 10 mg tablet Follow-up/Referrals: Esteban,MD Jim [Primary Care Provider] -
== END 2025-02-22 12:49 | disposition home or self-care (01) ==
PROVIDERS: Emergency Provider Emergency Medicine; PCP Family Medicine
DX: I10 Essential (primary) hypertension (principal); F17.210 Nicotine dependence, cigarettes, uncomplicated
CPT/HCPCS: 99283